=== PATIENT | female | born 1985 | race Caucasian/White ===

== ENCOUNTER 2016-08-02 10:55 | Emergency (ER) | payer OTHER ==
[2016-08-02 11:21] VITALS: BP 168/112
[2016-08-02] MEDS ORDERED: Sodium Chloride 0.9% 1,000 ML IV ONE (11:36)
[2016-08-02] MEDS ORDERED: Alum Hydrox/Mag Hydrox/Simeth 30 ML, Lidocaine 2% 15 ML PO ONE ×2 (11:36)
[2016-08-02] MEDS ORDERED: Ondansetron 4 MG/2 ML SDV IVPUSH ONE (11:36)
[2016-08-02] MEDS ORDERED: Sodium Chloride 0.9% 10 ML Syringe FLUSH PRN (11:36)
[2016-08-02] MEDS ORDERED: Pantoprazole 40 MG Vial IVPUSH ONE (11:36)
--- NOTE | 2016-08-02 11:41 | EDM.PDOC ---
ED HPI GENERAL MEDICAL PROBLEM - General Chief Complaint: Gastrointestinal Problem Stated Complaint: VOMITING Time Seen by Provider: 08/02/16 11:26 Source of Information: Reports: Patient History Limitations: Reports: No Limitations - History of Present Illness INITIAL COMMENTS - FREE TEXT/NARRATIVE: the patient is a 31-year-old female presents to ED complaining of epigastric pain is set at approximately 4:00 this morning. Patient states she awoke felt a burning sensation and bloated to the epigastric region became nauseated and vomited. Since then she's been vomiting every hour and has had multiple episodes of diarrhea. There is no blood within her emesis or diarrhea. Pain to the epigastric region is rated 8/10. There is no radiation. There is no improvement with rest. Has been no increase with eating or drinking. She does have a poor appetite. Remains to be bloated. In addition she developed a migraine with onset of abdominal pain and vomiting and took Imitrex and 9:00 with resolution. Denies any fever, shortness breath, chest pain, dysuria, dizziness, or recent sick exposure. She normally takes Nexium and tonics. She has not been taking proton for quite some time. In addition she takes Paxil for anxiety. Gallbladder and tonsils have been removed. She does have a history of IBS as well. Onset: Today, Sudden Onset Date: 08/02/16 Onset Time: 04:00 Duration: Constant, Waxing/Waning Location: Reports: Abdomen Quality: Reports: Ache, Sharp, Throbbing Severity: Severe Improves with: Reports: None Worsens with: Reports: Other (palpation and vomiting) Context: Denies: Sick Contact Associated Symptoms: Reports: Loss of Appetite, Nausea/Vomiting. Denies: Fever/ Chills Treatments [employer]: Reports: Other (see below) (see hpi) Abdomen Pain Score (Numeric/FACES): 8 - Related Data Allergies Allergy/AdvReac Type Severity Reaction Status Date / Time ibuprofen [From Motrin] Allergy Severe Anaphylactic Verified 10/29/15 22:34 Shock codeine Allergy Mild Itching Verified 10/30/15 09:15 morphine Allergy Mild Itching Verified 10/30/15 09:15 Sulfa (Sulfonamide Allergy Mild Hives Verified 10/30/15 09:15 Antibiotics) Fish Containing Products Allergy Swelling Verified 10/29/15 18:21 hydrocodone Allergy Itching Verified 10/29/15 18:21 tramadol Allergy itching/swe Verified 10/29/15 18:21 lling molds Allergy Hives Uncoded 05/31/14 15:37 Home Meds: Home Meds SUMAtriptan Succinate [Sumatriptan Succinate] 1 tab PO ASDIRECTED PRN 05/29/14 [ History] Esomeprazole [NexIUM] 40 mg PO DAILY 10/29/15 [History] PARoxetine HCl [Paxil] 30 mg PO DAILY 10/29/15 [History] Ondansetron [Zofran ODT] 4 mg PO Q6H PRN #15 tab.dis 08/02/16 [Rx] Pantoprazole Sodium [Protonix] 20 mg PO DAILY #30 tablet. 08/02/16 [Rx] Past Medical History Other Cardiovascular History: Currently elevated BP with extrem edema, 1+ urine protien Respiratory History: Reports: Asthma Other Respiratory History: exercise induced asthma. uses once every few months and inhaler Gastrointestinal History: Reports: GERD, Irritable Bowel Syndrome Other Gastrointestinal History: worse with anxiety. gets constipation with the IBS [employer] History: Reports: Neurological History: Reports: Vertigo Other Neuro History: gets migraines every few weeks. usually takes imitrex Psychiatric History: Reports: Anxiety, Depression, Panic Attack Other Psychiatric History: usually on paxil and protonix Endocrine/Metabolic History: Reports: Obesity/BMI 30+ - Infectious Disease History Infectious Disease History: Reports: Chicken Pox - Past Surgical History HEENT Surgical History: Reports: Tonsillectomy Other HEENT Surgeries/Procedures: cyst removed from esophagus Endocrine Surgical History: Reports: None Neurological Surgical History: Reports: None Social & Family History - Family History Family Medical History: Noncontributory Cardiac: Reports: Heart Failure Oncologic: Reports: Breast (grandmother), Thyroid (grandmother) - Tobacco Use Smoking Status *Q: Current Every Day Smoker Years of Tobacco use: 6 Packs/Tins Daily: 0.5 Second Hand Smoke Exposure: No - Caffeine Use Caffeine Use: Reports: Coffee, Tea - Alcohol Use Days Per Week of Alcohol Use: 0 - Recreational Drug Use Recreational Drug Use: No ED ROS GENERAL - Review of Systems Review Of Systems: See Below Constitutional: Reports: Decreased Appetite. Denies: Fever, Chills Respiratory: Reports: No Symptoms Cardiovascular: Reports: No Symptoms GI/Abdominal: Reports: Abdominal Pain, Diarrhea, Nausea, Vomiting. Denies: Black Stool, Bloody Stool, Constipation, Difficulty Swallowing, Hematemesis, Melena : Reports: No Symptoms Musculoskeletal: Reports: No Symptoms Neurological: Reports: No Symptoms ED EXAM, GI/ABD - Physical Exam Exam: See Below Exam Limited By: No Limitations General Appearance: Alert, WD/WN, No Apparent Distress, Mild Distress Ears: Hearing Grossly Normal Nose: Normal Inspection Throat/Mouth: Normal Inspection, Normal Oropharynx, Normal Voice, No Airway Compromise Neck: Normal Inspection, Supple Respiratory/Chest: No Respiratory Distress, Lungs Clear, Normal Breath Sounds, No Accessory Muscle Use, Chest Non-Tender Cardiovascular: Normal Peripheral Pulses, Regular Rate, Rhythm GI/Abdominal: Normal Bowel Sounds, Soft, No Organomegaly, No Distention, No Abnormal Bruit, No Mass, Tenderness (mild tenderness noted to the epigastric region with palpation) Back Exam: Normal Inspection. No: CVA Tenderness (L), CVA Tenderness (R) Neurological: Alert, Oriented, CN II-XII Intact, Normal Cognition, No Motor/ Sensory Deficits Psychiatric: Normal Affect, Normal Mood Skin Exam: Warm, Dry, Intact, Normal Color Course - Vital Signs Last Recorded V/S: Last Vital Signs Temp 96.7 F 08/02/16 11:19 Pulse 80 08/02/16 11:19 Resp 20 08/02/16 11:19 BP 168/112 H 08/02/16 11:19 Pulse Ox 97 08/02/16 11:19 - Orders/Labs/Meds Orders: Active Orders 24 hr Category Date Time Status Peripheral IV Care [RC] . DIRECTED Care 08/02/16 11:36 Active Abdomen 2V AP Flat Upright [CR] Stat Exams 08/02/16 11:35 Taken Sodium Chloride 0.9% [Saline Flush] Med 08/02/16 11:36 Active 10 ml FLUSH ASDIRECTED PRN Peripheral IV Insertion Adult [OM.PC] Stat Oth 08/02/16 11:35 Ordered Medication Orders Sodium Chloride (Saline Flush) 10 ml FLUSH ASDIRECTED PRN PRN Reason: Keep Vein Open Last Admin: 08/02/16 12:04 Dose: 10 ml Labs: Laboratory Tests 08/02/16 08/02/16 08/02/16 Range/Units 11:45 11:45 11:45 WBC 9.56 (3.98-10.04) K/mm3 RBC 5.26 H (3.98-5.22) M/mm3 Hgb 13.8 (11.2-15.7) gm/L Hct 41.5 (34.1-44.9) % MCV 78.9 L (79.4-94.8) fl MCH 26.2 (25.6-32.2) pg MCHC 33.3 (32.2-35.5) g/dl RDW Std Deviation 40.9 (36.4-46.3) fL Plt Count 386 H (182-369) K/mm3 MPV 8.5 L (9.4-12.3) fl Neut % (Auto) 79.1 H (34.0-71.1) % Lymph % (Auto) 15.7 L (19.3-51.7) % [place] % (Auto) 4.4 L (4.7-12.5) % Eos % (Auto) 0.3 L (0.7-5.8) Baso % (Auto) 0.2 (0.1-1.2) % Neut # (Auto) 7.56 H (1.56-6.13) K/mm3 Lymph # (Auto) 1.50 (1.18-3.74) K/mm3 [place] # (Auto) 0.42 H (0.24-0.36) K/mm3 Eos # (Auto) 0.03 L (0.04-0.36) K/mm3 Baso # (Auto) 0.02 (0.01-0.08) K/mm3 Sodium 139 (136-145) mEq/L Potassium 4.0 (3.5-5.1) mEq/L Chloride 107 (98-107) mEq/L Carbon Dioxide 24 (21-32) mEq/L Anion Gap 12.0 (5-15) BUN 8 (7-18) mg/dL Creatinine 0.7 (0.55-1.02) mg/dL Est Cr Clr Drug Dosing 108.01 mL/min Estimated GFR (MDRD) > 60 (>60) mL/min BUN/Creatinine Ratio 11.4 L (14-18) Glucose 119 H (74-106) mg/dL Calcium 8.7 (8.5-10.1) mg/dL Total Bilirubin 0.4 (0.2-1.0) mg/dL AST 15 (15-37) U/L ALT 29 (14-59) U/L Alkaline Phosphatase 96 (46-116) U/L Total Protein 7.6 (6.4-8.2) g/dl Albumin 3.6 (3.4-5.0) g/dl Globulin 4.0 gm/dL Albumin/Globulin Ratio 0.9 L (1-2) Lipase 82 (73-393) U/L HCG, Qual Negative (NEGATIVE) Meds: Medications Generic Name Dose Route Start Last Admin Trade Name Freq PRN Reason Stop Dose Admin Sodium Chloride 10 ml 08/02/16 11:36 08/02/16 12:04 Saline Flush FLUSH 10 ml ASDIRECTED PRN Administration Keep Vein Open Discontinued Medications Generic Name Dose Route Start Last Admin Trade Name Freq PRN Reason Stop Dose Admin Al Hydroxide/Mg Hydroxide 30 0 ml 08/02/16 11:36 08/02/16 12:02 ml/ Lidocaine HCl 15 ml PO 08/02/16 11:37 45 ml ONETIME ONE Administration Sodium Chloride 1,000 mls @ 999 mls/hr 08/02/16 11:36 08/02/16 11:55 Normal Saline IV 08/02/16 12:36 999 mls/hr ONETIME ONE Administration Ondansetron HCl 4 mg 08/02/16 11:36 08/02/16 12:00 Zofran IVPUSH 08/02/16 11:37 4 mg ONETIME ONE Administration Pantoprazole Sodium 40 mg 08/02/16 11:36 08/02/16 12:01 Protonix Iv IVPUSH 08/02/16 11:37 40 mg ONETIME ONE Administration - Re-Assessments/Exams Free Text/Narrative Re-Assessment/Exam: ordered a peripheral IV with normal saline 999 mL per hour, Zofran 4 mg IVP, Protonix 40 mg IVP, and GI cocktail. Initial labs and studies include CBC, chem 14, hCG, and lipase. labs reviewed: White blood cell count 9.56, hemoglobin is 13.8, platelets 386, neutrophil percentage is 79.1, neutrophil number is 7.56, chem 14 essentially normal, creatinine 0.7, lipase 82, hCG was negative. 1235: Reassessment, patient's nausea and pain have decreased drastically with the above therapies. We'll discharge patient home with instructions as documented. Departure - Departure Time of Disposition: 12:52 Disposition: Home, Self-Care 01 Condition: good Clinical Impression: Gastroenteritis - Discharge Information Prescriptions: Ondansetron [Zofran ODT] 4 mg PO Q6H PRN #15 tab.dis PRN Reason: Nausea/Vomiting Pantoprazole Sodium [Protonix] 20 mg PO DAILY #30 tablet.dr Forms: ED Department Discharge Additional Instructions: As discussed etiology of current symptoms may be viral (gastroenteritis) or related to gastritis (GERD).Treatment is symptomatic care only including: Zofran 4 mg every 6 hours as needed for nausea/vomiting, Maalox 1-2 tabs p.o. p.r.n. do not exceed 12 tabs in a 24., Push the fluids, refrain from raw fruits/ vegetables, fruit juices, milk, or any spicy foods for the next 48 hrs, advance to bland diet for the next 2 days, and back to normal diet thereafter. continue taking all home medications as prescribed. Followup with her primary care provider next week if symptoms have not improved. Return to the ED for any new or worsening symptoms. - My Orders Last 24 Hours: My Active Orders 08/02/16 11:35 Abdomen 2V AP Flat Upright [CR] Stat Peripheral IV Insertion Adult [OM.PC] Stat 08/02/16 11:36 Peripheral IV Care [RC] . DIRECTED Sodium Chloride 0.9% [Saline Flush] 10 ml FLUSH ASDIRECTED PRN - Assessment/Plan Last 24 Hours: My Active Orders 08/02/16 11:35 Abdomen 2V AP Flat Upright [CR] Stat Peripheral IV Insertion Adult [OM.PC] Stat 08/02/16 11:36 Peripheral IV Care [RC] . DIRECTED Sodium Chloride 0.9% [Saline Flush] 10 ml FLUSH ASDIRECTED PRN
--- NOTE | 2016-08-04 12:04 | CR ---
Abdomen: Supine views of the abdomen were obtained as well as upright study. Surgical clips are seen from prior cholecystectomy. Bowel gas pattern appears normal. Multiple calcifications are seen within the right pelvis most likely representing phleboliths. Bony structures show minimal scoliosis. No free air is seen. Slight rib anomaly is seen within the left lower chest with partial fusion between 2 ribs. Impression: 1. Incidental findings. Diagnostic code #2
== END 2016-08-02 13:11 | disposition home or self-care (01) ==
LOC: JD.ED 10:55
DX: K52.9 Noninfective gastroenteritis and colitis, unspecified (principal); F17.210 Nicotine dependence, cigarettes, uncomplicated; J45.909 Unspecified asthma, uncomplicated; K21.9 Gastro-esophageal reflux disease without esophagitis; F41.0 Panic disorder [episodic paroxysmal anxiety]; F32.9 Major depressive disorder, single episode, unspecified; E66.9 Obesity, unspecified; Z98.890 Other specified postprocedural states; Z79.899 Other long term (current) drug therapy; Z88.5 Allergy status to narcotic agent; Z88.6 Allergy status to analgesic agent; Z88.2 Allergy status to sulfonamides; Z91.013 Allergy to seafood
CPT/HCPCS: 36415; 74020; 80053; 83690; 84703; 85025; 96361; 96374; 96375; 99284; A9270; C9113; J2405; J7040; J7050

== ENCOUNTER 2017-01-23 21:04 | Emergency (ER) | payer OTHER ==
[2017-01-23 21:18] VITALS: BP 136/95
[2017-01-23] MEDS ORDERED: Albuterol/Ipratropium 3.0-0.5 MG/3 ML Neb Soln NEB ONE (21:26)
--- NOTE | 2017-01-23 21:34 | EDM.PDOC ---
ED HPI GENERAL MEDICAL PROBLEM - General Chief Complaint: Respiratory Problem Stated Complaint: TIGHTNESS IN CHEST Time Seen by Provider: 01/23/17 21:07 Source of Information: Reports: Patient History Limitations: Reports: No Limitations - History of Present Illness INITIAL COMMENTS - FREE TEXT/NARRATIVE: This is a 32-year-old female. Onset several days ago with increasing cough and lung congestion. She does apparently have a history of asthma but does not use an inhaler. She denies any fever or chills she's had no upper respiratory symptoms or sinus drainage and no sore throat. 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 She does smoke. She comes in the ER because she feels like she is tight when she breathes and she is coughing a lot. She denies any production with the cough. She denies any nausea or vomiting. Coughing does bother her back and her abdomen muscles. Chest Pain Score (Numeric/FACES): 8 - Related Data Allergies Allergy/AdvReac Type Severity Reaction Status Date / Time ibuprofen [From Motrin] Allergy Severe Anaphylactic Verified 10/29/15 22:34 Shock codeine Allergy Mild Itching Verified 10/30/15 09:15 morphine Allergy Mild Itching Verified 10/30/15 09:15 Sulfa (Sulfonamide Allergy Mild Hives Verified 10/30/15 09:15 Antibiotics) Fish Containing Products Allergy Swelling Verified 10/29/15 18:21 hydrocodone Allergy Itching Verified 10/29/15 18:21 tramadol Allergy itching/swe Verified 10/29/15 18:21 lling molds Allergy Hives Uncoded 05/31/14 15:37 Home Meds: Home Meds SUMAtriptan Succinate [Sumatriptan Succinate] 1 tab PO ASDIRECTED PRN 05/29/14 [ History] Esomeprazole [NexIUM] 40 mg PO DAILY 10/29/15 [History] PARoxetine HCl [Paxil] 30 mg PO DAILY 10/29/15 [History] Albuterol Sulfate [Ventolin Hfa] 18 gm IH Q6H PRN #1 hfa.aer.ad 01/23/17 [Rx] Amoxicillin/Potassium Clav [Augmentin 875-125 Tablet] 1 each PO BID #14 tablet 01/23/17 [Rx] Metoprolol Succinate 25 mg PO DAILY 01/23/17 [History] Past Medical History Other Cardiovascular History: Currently elevated BP with extrem edema, 1+ urine protien Respiratory History: Reports: Asthma Other Respiratory History: exercise induced asthma. uses once every few months and inhaler Gastrointestinal History: Reports: GERD, Irritable Bowel Syndrome Other Gastrointestinal History: worse with anxiety. gets constipation with the IBS [employer] History: Reports: Neurological History: Reports: Vertigo Other Neuro History: gets migraines every few weeks. usually takes imitrex Psychiatric History: Reports: Anxiety, Depression, Panic Attack Other Psychiatric History: usually on paxil and protonix Endocrine/Metabolic History: Reports: Obesity/BMI 30+ - Infectious Disease History Infectious Disease History: Reports: Chicken Pox - Past Surgical History HEENT Surgical History: Reports: Tonsillectomy Other HEENT Surgeries/Procedures: cyst removed from esophagus Endocrine Surgical History: Reports: None Neurological Surgical History: Reports: None Social & Family History - Family History Family Medical History: Noncontributory Cardiac: Reports: Heart Failure Oncologic: Reports: Breast, Thyroid - Tobacco Use Smoking Status *Q: Current Every Day Smoker Years of Tobacco use: 1 Packs/Tins Daily: 0.5 Second Hand Smoke Exposure: No - Caffeine Use Caffeine Use: Reports: Coffee - Alcohol Use Days Per Week of Alcohol Use: 0 - Recreational Drug Use Recreational Drug Use: No ED ROS GENERAL - Review of Systems Review Of Systems: See Below Constitutional: Denies: Fever, Chills HEENT: Denies: Rhinitis, Sinus Problem, Throat Pain, Throat Swelling Respiratory: Reports: Shortness of Breath, Wheezing, Cough Cardiovascular: Denies: Chest Pain Endocrine: Reports: No Symptoms GI/Abdominal: Denies: Abdominal Pain, Diarrhea, Nausea, Vomiting : Reports: No Symptoms Musculoskeletal: Reports: Other (Back soreness and abdominal soreness from coughing) Skin: Reports: No Symptoms Neurological: Reports: No Symptoms Psychiatric: Reports: No Symptoms Hematologic/Lymphatic: Reports: No Symptoms ED EXAM, GENERAL - Physical Exam Exam: See Below Exam Limited By: No Limitations General Appearance: Alert, WD/WN, No Apparent Distress Eye Exam: Bilateral Eye: Normal Inspection Ears: Normal External Exam, Normal Canal, Normal TMs Nose: Normal Inspection. No: Nasal Drainage, Clear Rhinorrhea Throat/Mouth: Normal Inspection, Normal Lips, Normal Oropharynx, Normal Voice, No Airway Compromise Head: Normocephalic Neck: Supple Respiratory/Chest: No Respiratory Distress, Other (She is noted to have scattered expiratory wheeze but no prolonged expiratory phase, the wheezes heard mostly in the bases but also in the right upper lobe) Cardiovascular: Regular Rate, Rhythm, No Murmur GI/Abdominal: Soft, Non-Tender Back Exam: Full Range of Motion Extremities: Normal Inspection, Normal Range of Motion Neurological: Alert, Oriented Psychiatric: Normal Affect, Normal Mood Skin Exam: Warm, Dry Course - Vital Signs Last Recorded V/S: Last Vital Signs Temp 98.0 F 01/23/17 21:16 Pulse 82 01/23/17 21:16 Resp 20 01/23/17 21:16 BP 136/95 H 01/23/17 21:16 Pulse Ox 98 01/23/17 21:16 - Orders/Labs/Meds Orders: Active Orders 24 hr Category Date Time Status RT Aerosol Therapy [RC] ASDIRECTED Care 01/23/17 21:26 Active Meds: Medications Discontinued Medications Generic Name Dose Route Start Last Admin Trade Name Freq PRN Reason Stop Dose Admin Albuterol/Ipratropium 3 ml 01/23/17 21:26 01/23/17 21:32 Duoneb 3.0-0.5 Mg/3 Ml NEB 01/23/17 21:27 3 ml ONETIME ONE Administration - Re-Assessments/Exams Free Text/Narrative Re-Assessment/Exam: 01/23/17 22:10 After the breathing treatment the patient states she is breathing much better not quite so tight and feeling better. I'll place her on an albuterol inhaler. She does indicate she has exercise-induced asthma even though it doesn't bother her much now and she is not on an inhaler usually. He has been on Zithromax her Z-Christian in the past that works well for her. Departure - Departure Time of Disposition: 22:11 Disposition: Home, Self-Care 01 Condition: Good Clinical Impression: Acute bronchitis Qualifiers: Bronchitis organism: unspecified organism Qualified Code(s): J20.9 - Acute bronchitis, unspecified Reactive airway disease Qualifiers: Asthma severity: mild Asthma persistence: intermittent Asthma complication type : uncomplicated Qualified Code(s): J45.20 - Mild intermittent asthma, uncomplicated - Discharge Information Prescriptions: Albuterol Sulfate [Ventolin Hfa] 18 gm IH Q6H PRN #1 hfa.aer.ad PRN Reason: Wheezing Amoxicillin/Potassium Clav [Augmentin 875-125 Tablet] 1 each PO BID #14 tablet Referrals: Kareem Correia MD [Primary Care Provider] - Forms: ED Department Discharge Additional Instructions: Take [id number] Mucinex as desired for the mucous, you may take over-the- counter cough syrup such as Robitussin or Delsym to help your cough, stay well hydrated with lots of fluids so you can cough the mucus up, take the antibiotics twice a day for the full 7 days, use the albuterol inhaler as needed for the wheezing and tightness, follow-up with your family doctor later this week for recheck or return to the ER if needed - My Orders Last 24 Hours: My Active Orders 01/23/17 21:26 RT Aerosol Therapy [RC] ASDIRECTED - Assessment/Plan Last 24 Hours: My Active Orders 01/23/17 21:26 RT Aerosol Therapy [RC] ASDIRECTED
== END 2017-01-23 22:24 | disposition home or self-care (01) ==
LOC: JD.ED 21:04
DX: J45.20 Mild intermittent asthma, uncomplicated (principal); J20.9 Acute bronchitis, unspecified; K21.9 Gastro-esophageal reflux disease without esophagitis; F41.0 Panic disorder [episodic paroxysmal anxiety]; F17.210 Nicotine dependence, cigarettes, uncomplicated; Z79.899 Other long term (current) drug therapy; Z88.5 Allergy status to narcotic agent; Z88.6 Allergy status to analgesic agent; Z88.2 Allergy status to sulfonamides; Z91.013 Allergy to seafood; Z91.048 Other nonmedicinal substance allergy status
CPT/HCPCS: 94640; 99283; 99283-25

== ENCOUNTER 2018-05-19 18:29 | Emergency (ER) | payer OTHER ==
[2018-05-19 18:45] VITALS: BP 156/113
[2018-05-19] MEDS ORDERED: Sodium Chloride 0.9% 10 ML Syringe FLUSH PRN (19:01)
[2018-05-19] MEDS ORDERED: diphenhydrAMINE 50 MG/ML SDV IVPUSH ONE (19:01)
[2018-05-19] MEDS ORDERED: HYDROmorphone 1 MG/ML Syringe IVPUSH ONE ×2 (19:01→20:09)
[2018-05-19] MEDS ORDERED: Ondansetron 4 MG/2 ML SDV IVPUSH ONE (19:02)
--- NOTE | 2018-05-19 19:06 | EDM.PDOC ---
ED HPI GENERAL MEDICAL PROBLEM - General Chief Complaint: Headache Stated Complaint: MIGRAIN Time Seen by Provider: 05/19/18 18:56 Source of Information: Reports: Patient History Limitations: Reports: No Limitations - History of Present Illness INITIAL COMMENTS - FREE TEXT/NARRATIVE: The patient presents with a migraine. She says this started early this morning and work her up. She took an imitrex at 4 am and later in the day and it did not help. She has photophobia and nausea. She has no numbness or weakness. This is like her normal migraine but she says it has been years since she has had to come in to get some help with them. She has no fever, chills, cough, congestion, runny nose, chest pain or shortness of breath. She has no abdominal pain. Onset: Gradual Duration: Hour(s): Location: Reports: Head Quality: Reports: Ache Severity: Severe Improves with: Reports: None Worsens with: Reports: None Associated Symptoms: Reports: Headaches, Nausea/Vomiting. Denies: Chest Pain, Cough, Fever/Chills, Shortness of Breath Headache Pain Score (Numeric/FACES): 7 - Related Data Allergies Allergy/AdvReac Type Severity Reaction Status Date / Time ibuprofen [From Motrin] Allergy Severe Anaphylactic Verified 09/17/17 20:21 Shock codeine Allergy Mild Itching Verified 09/17/17 20:21 morphine Allergy Mild Itching Verified 09/17/17 20:21 Sulfa (Sulfonamide Allergy Mild Hives Verified 09/17/17 20:21 Antibiotics) Fish Containing Products Allergy Swelling Verified 09/17/17 20:21 hydrocodone Allergy Itching Verified 09/17/17 20:21 tramadol Allergy itching/swe Verified 09/17/17 20:21 lling molds Allergy Hives Uncoded 05/31/14 15:37 Home Meds: Home Meds SUMAtriptan succinate [Sumatriptan Succinate] 1 tab PO ASDIRECTED PRN 05/29/14 [ History] Esomeprazole [NexIUM] 40 mg PO DAILY 10/29/15 [History] PARoxetine HCl [Paxil] 30 mg PO DAILY 10/29/15 [History] Albuterol Sulfate [Ventolin Hfa] 18 gm IH Q6H PRN #1 hfa.aer.ad 01/23/17 [Rx] Phentermine HCl 37.5 mg PO DAILY 05/19/18 [History] Past Medical History Other Cardiovascular History: Currently elevated BP with extrem edema, 1+ urine protien Respiratory History: Reports: Asthma Other Respiratory History: exercise induced asthma. uses once every few months and inhaler Gastrointestinal History: Reports: GERD, Irritable Bowel Syndrome Other Gastrointestinal History: worse with anxiety. gets constipation with the IBS [employer] History: Reports: Neurological History: Reports: Vertigo Other Neuro History: gets migraines every few weeks. usually takes imitrex Psychiatric History: Reports: Anxiety, Depression, Panic Attack Other Psychiatric History: usually on paxil and protonix Endocrine/Metabolic History: Reports: Obesity/BMI 30+ - Infectious Disease History Infectious Disease History: Reports: Chicken Pox - Past Surgical History HEENT Surgical History: Reports: Tonsillectomy Other HEENT Surgeries/Procedures: cyst removed from esophagus Endocrine Surgical History: Reports: None Neurological Surgical History: Reports: None Social & Family History - Family History Family Medical History: Noncontributory Cardiac: Reports: Heart Failure Oncologic: Reports: Breast, Thyroid - Tobacco Use Smoking Status *Q: Current Every Day Smoker Years of Tobacco use: 2 Packs/Tins Daily: 0.5 - Caffeine Use Caffeine Use: Reports: Coffee - Recreational Drug Use Recreational Drug Use: No ED ROS GENERAL - Review of Systems Review Of Systems: See Below Constitutional: Reports: No Symptoms HEENT: Reports: No Symptoms Respiratory: Reports: No Symptoms Cardiovascular: Reports: No Symptoms Endocrine: Reports: No Symptoms GI/Abdominal: Reports: No Symptoms : Reports: No Symptoms Musculoskeletal: Reports: No Symptoms Skin: Reports: No Symptoms Neurological: Reports: Headache - Physical Exam Exam: See Below Exam Limited By: No Limitations General Appearance: Alert, No Apparent Distress Ears: Normal External Exam Nose: Normal Inspection Head Exam: Atraumatic, Normocephalic Neck: Normal Inspection Respiratory/Chest: No Respiratory Distress, Lungs Clear, Normal Breath Sounds Cardiovascular: Regular Rate, Rhythm, No Edema, No Murmur GI/Abdominal: Soft, Non-Tender, No Organomegaly, No Mass Neuro Exam (Abbreviated): Alert, Oriented, No Motor/Sensory Deficits Course - Vital Signs Last Recorded V/S: Last Vital Signs Temp 98.7 F 05/19/18 18:41 Pulse 84 05/19/18 18:41 Resp 20 05/19/18 18:41 BP 156/113 H 03/27/19 18:41 Pulse Ox 98 05/19/18 18:41 - Orders/Labs/Meds Orders: Active Orders 24 hr Category Date Time Status Peripheral IV Care [RC] . DIRECTED Care 05/19/18 19:01 Active HYDROmorphone [Dilaudid] Med 05/19/18 20:09 Once 0.5 mg IVPUSH ONETIME ONE Sodium Chloride 0.9% [Saline Flush] Med 05/19/18 19:01 Active 10 ml FLUSH ASDIRECTED PRN Peripheral IV Insertion Adult [OM.PC] Routine Oth 05/19/18 19:01 Ordered Medication Orders Sodium Chloride (Saline Flush) 10 ml FLUSH ASDIRECTED PRN PRN Reason: Keep Vein Open Last Admin: 05/19/18 19:21 Dose: 10 ml Meds: Medications Generic Name Dose Route Start Last Admin Trade Name Freq PRN Reason Stop Dose Admin Sodium Chloride 10 ml 05/19/18 19:01 05/19/18 19:21 Saline Flush FLUSH 10 ml ASDIRECTED PRN Administration Keep Vein Open Discontinued Medications Generic Name Dose Route Start Last Admin Trade Name Freq PRN Reason Stop Dose Admin Diphenhydramine HCl 50 mg 05/19/18 19:01 05/19/18 19:25 Benadryl IVPUSH 05/19/18 19:02 50 mg ONETIME ONE Administration Hydromorphone HCl 0.5 mg 05/19/18 19:01 05/19/18 19:28 Dilaudid IVPUSH 05/19/18 19:02 0.5 mg ONETIME ONE Administration Ondansetron HCl 4 mg 05/19/18 19:02 05/19/18 19:22 Zofran IVPUSH 05/19/18 19:03 4 mg ONETIME ONE Administration - Re-Assessments/Exams Free Text/Narrative Re-Assessment/Exam: 05/19/18 19:05 I ordered an IV saline lock, dilaudid 0.5mg IV, zofran 4mg IV and benadryl 50mg IV. She says this combination helps the most. 05/19/18 20:09 She feels much better. I will give her another dose of dilaudid 0.5mg IV and discharge her. Departure - Departure Time of Disposition: 20:10 Disposition: Home, Self-Care 01 Condition: Good Clinical Impression: Migraine - Discharge Information *PRESCRIPTION DRUG MONITORING PROGRAM REVIEWED*: Not Applicable *COPY OF PRESCRIPTION DRUG MONITORING REPORT IN PATIENT MAL: Not Applicable Referrals: Kareem Correia MD [Primary Care Provider] - Forms: ED Department Discharge Additional Instructions: Go home and rest in a dark quiet room. Please return if you are worse. - My Orders Last 24 Hours: My Active Orders 05/19/18 19:01 Peripheral IV Care [RC] . DIRECTED Sodium Chloride 0.9% [Saline Flush] 10 ml FLUSH ASDIRECTED PRN Peripheral IV Insertion Adult [OM.PC] Routine 05/19/18 20:09 HYDROmorphone [Dilaudid] 0.5 mg IVPUSH ONETIME ONE - Assessment/Plan Last 24 Hours: My Active Orders 05/19/18 19:01 Peripheral IV Care [RC] . DIRECTED Sodium Chloride 0.9% [Saline Flush] 10 ml FLUSH ASDIRECTED PRN Peripheral IV Insertion Adult [OM.PC] Routine 05/19/18 20:09 HYDROmorphone [Dilaudid] 0.5 mg IVPUSH ONETIME ONE
== END 2018-05-19 20:21 | disposition home or self-care (01) ==
LOC: JD.ED 18:29
DX: G43.909 Migraine, unspecified, not intractable, without status migrainosus (principal); J45.909 Unspecified asthma, uncomplicated; F17.210 Nicotine dependence, cigarettes, uncomplicated; Z88.6 Allergy status to analgesic agent; Z88.5 Allergy status to narcotic agent; Z88.2 Allergy status to sulfonamides; Z79.899 Other long term (current) drug therapy
CPT/HCPCS: 96374; 96375; 96376; 99283; J1170; J1200; J2405; 99284

== ENCOUNTER 2018-06-01 15:58 | Emergency (ER) | payer SELFPAY ==
[2018-06-01 16:19] VITALS: BP 155/104
[2018-06-01] MEDS ORDERED: diphenhydrAMINE 50 MG/ML SDV IVPUSH ONE (16:39)
[2018-06-01] MEDS ORDERED: Sodium Chloride 0.9% 10 ML Syringe FLUSH PRN (16:39)
[2018-06-01] MEDS ORDERED: HYDROmorphone 1 MG/ML Syringe IM ONE (16:39)
[2018-06-01] MEDS ORDERED: Ondansetron 4 MG/2 ML SDV IVPUSH ONE (16:39)
[2018-06-01] MEDS ORDERED: Sodium Chloride 0.9% 1,000 ML IV SCH (16:45)
--- NOTE | 2018-06-01 16:46 | EDM.PDOC ---
ED HPI GENERAL MEDICAL PROBLEM - General Chief Complaint: Headache Stated Complaint: MIGRAINE Time Seen by Provider: 06/01/18 16:20 Source of Information: Reports: Patient, RN Notes Reviewed History Limitations: Reports: No Limitations - History of Present Illness INITIAL COMMENTS - FREE TEXT/NARRATIVE: Patient is a 33 year old female who presents to the ED for the evaluation of a migraine. She notes that she has a history of migraines, she states this one started around 10 AM, she did take 2 doses of her 100 mg Imitrex and this has not provided much relief. The patient is complaining of nausea and light sensitivity, watery eyes. She notes her primary care physician a be Dr. Correia. She states that she was recently seen here roughly 2-3 weeks ago for the same type of migraine headache. She states that she has had migraine headaches for forever. She states that she recently just started a new type of control in March,, and migraines have increased since then she is going to talk to her [employer] to see if he will not change the oral contraceptive for her. She states that she knows which foods to avoid, and she has not eaten any of these types of foods to exacerbate a migraine. She states that her pain is a 9 out of 10 today. She notes a previous allergy to ibuprofen , she states that when she took this her face got all swollen up. She states that she used to take ibuprofen all the time, but after this one instance she cannot take it any longer. Headache Pain Score (Numeric/FACES): 9 - Related Data Allergies Allergy/AdvReac Type Severity Reaction Status Date / Time ibuprofen [From Motrin] Allergy Severe Anaphylactic Verified 06/01/18 16:19 Shock codeine Allergy Mild Itching Verified 06/01/18 16:19 morphine Allergy Mild Itching Verified 06/01/18 16:19 Sulfa (Sulfonamide Allergy Mild Hives Verified 06/01/18 16:19 Antibiotics) Fish Containing Products Allergy Swelling Verified 06/01/18 16:19 hydrocodone Allergy Itching Verified 06/01/18 16:19 tramadol Allergy itching/swe Verified 06/01/18 16:19 lling molds Allergy Hives Uncoded 06/01/18 16:19 Home Meds: Home Meds SUMAtriptan succinate [Sumatriptan Succinate] 100 tab PO ASDIRECTED PRN [History] Esomeprazole [NexIUM] 40 mg PO DAILY 10/29/15 [History] PARoxetine HCl [Paxil] 30 mg PO DAILY 10/29/15 [History] Albuterol Sulfate [Ventolin Hfa] 18 gm IH Q6H PRN #1 hfa.aer.ad 01/23/17 [Rx] Phentermine HCl 37.5 mg PO DAILY 05/19/18 [History] Past Medical History - Past Health History Medical/Surgical History: Denies Medical/Surgical History Other Cardiovascular History: Currently elevated BP with extrem edema, 1+ urine protien Respiratory History: Reports: Asthma Other Respiratory History: exercise induced asthma. uses once every few months and inhaler Gastrointestinal History: Reports: GERD, Irritable Bowel Syndrome Other Gastrointestinal History: worse with anxiety. gets constipation with the IBS [employer] History: Reports: Neurological History: Reports: Vertigo Other Neuro History: gets migraines every few weeks. usually takes imitrex Psychiatric History: Reports: Anxiety, Depression, Panic Attack Other Psychiatric History: usually on paxil and protonix Endocrine/Metabolic History: Reports: Obesity/BMI 30+ - Infectious Disease History Infectious Disease History: Reports: Chicken Pox - Past Surgical History HEENT Surgical History: Reports: Tonsillectomy Other HEENT Surgeries/Procedures: cyst removed from esophagus Endocrine Surgical History: Reports: None Neurological Surgical History: Reports: None Social & Family History - Family History Family Medical History: Noncontributory Cardiac: Reports: Heart Failure Oncologic: Reports: Breast, Thyroid - Tobacco Use Smoking Status *Q: Current Every Day Smoker Years of Tobacco use: 3 Packs/Tins Daily: 0.5 - Caffeine Use Caffeine Use: Reports: Coffee - Recreational Drug Use Recreational Drug Use: No ED ROS GENERAL - Review of Systems Review Of Systems: See Below Constitutional: Denies: Fever, Chills, Malaise, Weakness HEENT: Reports: No Symptoms Respiratory: Reports: No Symptoms Cardiovascular: Reports: No Symptoms Endocrine: Reports: No Symptoms GI/Abdominal: Reports: No Symptoms : Reports: No Symptoms Musculoskeletal: Reports: No Symptoms Skin: Reports: No Symptoms Neurological: Reports: Headache Psychiatric: Reports: No Symptoms Hematologic/Lymphatic: Reports: No Symptoms Immunologic: Reports: No Symptoms - Physical Exam Exam: See Below Exam Limited By: No Limitations General Appearance: Alert, WD/WN, No Apparent Distress (Patient is laying on the ED cot in a darkened room, with a washcloth over her eyes) Eye Exam: Bilateral Eye: EOMI, Normal Inspection, PERRL Ears: Normal External Exam Nose: Normal Inspection Throat/Mouth: Normal Inspection Head Exam: Atraumatic, Normocephalic Neck: Normal Inspection Respiratory/Chest: No Respiratory Distress, Lungs Clear, Normal Breath Sounds, No Accessory Muscle Use, Chest Non-Tender Cardiovascular: Normal Peripheral Pulses Neuro Exam (Abbreviated): Alert, Oriented, Normal Cognition, Normal Gait, No Motor/Sensory Deficits Extremities: Normal Inspection, Normal Capillary Refill Psychiatric: Normal Affect, Normal Mood Skin Exam: Warm, Dry, Intact, Normal Color, No Rash Course - Vital Signs Last Recorded V/S: Last Vital Signs Temp 98.3 F 06/01/18 16:16 Pulse 83 06/01/18 16:16 Resp 16 06/01/18 16:16 BP 155/104 H 06/01/18 16:16 Pulse Ox 99 06/01/18 16:16 - Orders/Labs/Meds Orders: Active Orders 24 hr Category Date Time Status Peripheral IV Care [RC] . DIRECTED Care 06/01/18 16:39 Active Sodium Chloride 0.9% [Normal Saline] 1,000 ml Med 06/01/18 16:45 Active IV ASDIRECTED Sodium Chloride 0.9% [Saline Flush] Med 06/01/18 16:39 Active 10 ml FLUSH ASDIRECTED PRN Peripheral IV Insertion Adult [OM.PC] Routine Oth 06/01/18 16:39 Ordered Medication Orders Sodium Chloride (Normal Saline) 1,000 mls @ 125 mls/hr IV ASDIRECTED BIANCA Last Admin: 06/01/18 17:03 Dose: 125 mls/hr Sodium Chloride (Saline Flush) 10 ml FLUSH ASDIRECTED PRN PRN Reason: Keep Vein Open Last Admin: 06/01/18 17:04 Dose: 10 ml Meds: Medications Generic Name Dose Route Start Last Admin Trade Name Freq PRN Reason Stop Dose Admin Sodium Chloride 1,000 mls @ 125 mls/hr 06/01/18 16:45 06/01/18 17:03 Normal Saline IV 125 mls/hr ASDIRECTED BIANCA Administration Sodium Chloride 10 ml 06/01/18 16:39 06/01/18 17:04 Saline Flush FLUSH 10 ml ASDIRECTED PRN Administration Keep Vein Open Discontinued Medications Generic Name Dose Route Start Last Admin Trade Name Pallavi PRN Reason Stop Dose Admin Diphenhydramine HCl 25 mg 06/01/18 16:39 06/01/18 17:05 Benadryl IVPUSH 06/01/18 16:40 25 mg ONETIME ONE Administration Hydromorphone HCl 0.5 mg 06/01/18 16:39 06/01/18 17:09 Dilaudid IM 06/01/18 16:40 Not Given ONETIME ONE Hydromorphone HCl 0.5 mg 06/01/18 17:07 06/01/18 17:07 Dilaudid IVPUSH 06/01/18 17:08 0.5 mg ONETIME ONE Administration Ondansetron HCl 4 mg 06/01/18 16:39 06/01/18 17:03 Zofran IVPUSH 06/01/18 16:40 4 mg ONETIME ONE Administration - Re-Assessments/Exams Free Text/Narrative Re-Assessment/Exam: 06/01/18 16:47 Patient presents to the ED for the evaluation of a migraine headache, she states this is a typical headache for her. As she has a stated allergic reaction to ibuprofen, I have ordered 0.5 mg IV Dilaudid, 25 mg IV Benadryl, 4 mg IV Zofran and an IV bolus of normal saline at this time for further management. 06/01/18 18:13 Patient states she is feeling better, rates her headache at around a 5 out of 10 , I will discharge her home with general recommendations. Departure - Departure Time of Disposition: 18:13 Disposition: Home, Self-Care 01 Condition: Fair Clinical Impression: Migraine Qualifiers: Migraine type: without aura Status migrainosus presence: without status migrainosus Intractability: not intractable Qualified Code(s): G43.009 - Migraine without aura, not intractable, without status migrainosus - Discharge Information *PRESCRIPTION DRUG MONITORING PROGRAM REVIEWED*: No *COPY OF PRESCRIPTION DRUG MONITORING REPORT IN PATIENT MAL: No Instructions: Migraine Headache, [id number] Referrals: Kareem Correia MD [Primary Care Provider] - Forms: ED Department Discharge Additional Instructions: You have been evaluated in the ED tonight for your headache. You have been given a combination of medications that did provide relief at this time. Please follow up with your [employer] for the evaluation of the new control that they put youon, you may need a change as this might be likely why you're having increased headaches. Please continue to use her Imitrex as needed, as directed for further migraines. Please return to the ED if your symptoms change or worsen - My Orders Last 24 Hours: My Active Orders 06/01/18 16:39 Peripheral IV Care [RC] . DIRECTED Sodium Chloride 0.9% [Saline Flush] 10 ml FLUSH ASDIRECTED PRN Peripheral IV Insertion Adult [OM.PC] Routine 06/01/18 16:45 Sodium Chloride 0.9% [Normal Saline] 1,000 ml IV ASDIRECTED - Assessment/Plan Last 24 Hours: My Active Orders 06/01/18 16:39 Peripheral IV Care [RC] . DIRECTED Sodium Chloride 0.9% [Saline Flush] 10 ml FLUSH ASDIRECTED PRN Peripheral IV Insertion Adult [OM.PC] Routine 06/01/18 16:45 Sodium Chloride 0.9% [Normal Saline] 1,000 ml IV ASDIRECTED
[2018-06-01] MEDS ORDERED: HYDROmorphone 0.5 MG/0.5 ML Syringe IVPUSH ONE (17:07)
[2018-06-01] MEDS ORDERED: HYDROmorphone 1 MG/ML Syringe IVPUSH ONE (18:23)
== END 2018-06-01 18:35 | disposition home or self-care (01) ==
LOC: JD.ED 15:58
DX: G43.009 Migraine without aura, not intractable, without status migrainosus (principal); J45.909 Unspecified asthma, uncomplicated; K21.9 Gastro-esophageal reflux disease without esophagitis; F41.9 Anxiety disorder, unspecified; F32.9 Major depressive disorder, single episode, unspecified; F17.210 Nicotine dependence, cigarettes, uncomplicated; Z88.8 Allergy status to other drugs, medicaments and biological substances; Z88.5 Allergy status to narcotic agent; Z79.899 Other long term (current) drug therapy
CPT/HCPCS: 96361; 96374; 96375; 96376; 99283; J1170; J1200; J2405; J7040; 99284

== ENCOUNTER 2019-01-17 12:33 | Emergency (ER) | payer OTHER ==
[2019-01-17 12:40] VITALS: BP 160/114; PULSE 66
[2019-01-17] MEDS ORDERED: diphenhydrAMINE 50 MG/ML SDV IVPUSH ONE (12:46)
[2019-01-17] MEDS ORDERED: Ondansetron 4 MG/2 ML SDV IVPUSH ONE (12:46)
[2019-01-17] MEDS ORDERED: HYDROmorphone 0.5 MG/0.5 ML Syringe IVPUSH ONE ×2 (12:46→13:50)
--- NOTE | 2019-01-17 12:51 | EDM.PDOC ---
ED HPI GENERAL MEDICAL PROBLEM - General Chief Complaint: Headache Stated Complaint: HEADACHE Time Seen by Provider: 01/17/19 12:45 Source of Information: Reports: Patient History Limitations: Reports: No Limitations - History of Present Illness INITIAL COMMENTS - FREE TEXT/NARRATIVE: Patient is a 34-year-old female who presents with complaints of a migraine that started last night. She is nauseous with this headache however she has not had any vomiting. She denies any vision changes numbness or tingling associated with this headache. She indicates that the pain is on the top of her head. She has a long history of migraines and states that this is her typical migraine. She did take her Imitrex last night and states this did improve her symptoms and afterwards she was able to sleep. However when she woke this morning the symptoms had returned. She has tried numerous combinations of medications in the past, and states that Dilaudid, Zofran, and Benadryl work well for her. She does have an anaphylactic allergy to ibuprofen so she is unable to take Toradol. Headache Pain Score (Numeric/FACES): 8 - Related Data Allergies Allergy/AdvReac Type Severity Reaction Status Date / Time ibuprofen [From Motrin] Allergy Severe Anaphylactic Verified 01/17/19 12:40 Shock codeine Allergy Mild Itching Verified 01/17/19 12:40 morphine Allergy Mild Itching Verified 01/17/19 12:40 Sulfa (Sulfonamide Allergy Mild Hives Verified 01/17/19 12:40 Antibiotics) Fish Containing Products Allergy Swelling Verified 01/17/19 12:40 hydrocodone Allergy Itching Verified 01/17/19 12:40 tramadol Allergy itching/swe Verified 01/17/19 12:40 lling molds Allergy Hives Uncoded 06/01/18 16:19 Home Meds: Home Meds SUMAtriptan succinate [Sumatriptan Succinate] 100 tab PO ASDIRECTED PRN [History] Esomeprazole [NexIUM] 40 mg PO DAILY 10/29/15 [History] PARoxetine HCl [Paxil] 30 mg PO DAILY 10/29/15 [History] Albuterol Sulfate [Ventolin Hfa] 18 gm IH Q6H PRN #1 hfa.aer.ad 01/23/17 [Rx] Past Medical History - Past Health History Medical/Surgical History: Denies Medical/Surgical History Other HEENT History: glases Cardiovascular History: Reports: Hypertension Other Cardiovascular History: htn at 160/114 at this time Respiratory History: Reports: Asthma Other Respiratory History: exercise induced asthma. uses once every few months and inhaler Gastrointestinal History: Reports: GERD, Irritable Bowel Syndrome Other Gastrointestinal History: worse with anxiety. 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 usually takes imitrex Psychiatric History: Reports: Anxiety, Depression, Panic Attack Other Psychiatric History: usually on paxil and protonix Endocrine/Metabolic History: Reports: Obesity/BMI 30+ - Infectious Disease History Infectious Disease History: Reports: Chicken Pox - Past Surgical History HEENT Surgical History: Reports: Tonsillectomy Other HEENT Surgeries/Procedures: cyst removed from esophagus Endocrine Surgical History: Reports: None Neurological Surgical History: Reports: None Social & Family History - Family History Family Medical History: Noncontributory Cardiac: Reports: Heart Failure Oncologic: Reports: Breast, Thyroid - Tobacco Use Smoking Status *Q: Current Every Day Smoker Years of Tobacco use: 10 Packs/Tins Daily: 0.5 - Caffeine Use Caffeine Use: Reports: Coffee - Recreational Drug Use Recreational Drug Use: No ED ROS GENERAL - Review of Systems Review Of Systems: See Below Constitutional: Reports: No Symptoms. Denies: Fever, Chills, Weakness HEENT: Reports: No Symptoms Respiratory: Reports: No Symptoms Cardiovascular: Reports: No Symptoms Endocrine: Reports: No Symptoms GI/Abdominal: Reports: Nausea. Denies: Diarrhea, Vomiting : Reports: No Symptoms Musculoskeletal: Reports: No Symptoms Skin: Reports: No Symptoms Neurological: Reports: Headache. Denies: Dizziness, Paresthesia, Syncope, Tingling Psychiatric: Reports: No Symptoms Hematologic/Lymphatic: Reports: No Symptoms Immunologic: Reports: No Symptoms - Physical Exam Exam: See Below Exam Limited By: No Limitations General Appearance: Alert, WD/WN, Mild Distress Eye Exam: Bilateral Eye: PERRL Head Exam: Atraumatic, Normocephalic Respiratory/Chest: No Respiratory Distress, Lungs Clear, Normal Breath Sounds, No Accessory Muscle Use, Chest Non-Tender Cardiovascular: Normal Peripheral Pulses, Regular Rate, Rhythm, No Edema, No Murmur GI/Abdominal: Normal Bowel Sounds, Soft, Non-Tender, No Distention Neuro Exam (Abbreviated): Alert, Oriented, Normal Cognition, No Motor/Sensory Deficits Psychiatric: Normal Affect, Normal Mood Skin Exam: Warm, Dry, Intact, Normal Color, No Rash Course - Vital Signs Last Recorded V/S: Last Vital Signs Temp 97.3 F 01/17/19 12:39 Pulse 66 01/17/19 12:39 Resp 15 01/17/19 12:39 BP 160/114 H 01/17/19 12:39 Pulse Ox 100 01/17/19 12:39 - Orders/Labs/Meds Orders: Active Orders 24 hr Category Date Time Status HYDROmorphone [Dilaudid] Med 01/17/19 13:50 Once 0.5 mg IVPUSH ONETIME ONE Sodium Chloride 0.9% [Normal Saline] 1,000 ml Med 01/17/19 13:00 Active IV ASDIRECTED Medication Orders Sodium Chloride (Normal Saline) 1,000 mls @ 999 mls/hr IV ASDIRECTED BIANCA Last Admin: 01/17/19 13:05 Dose: 999 mls/hr Meds: Medications Generic Name Dose Route Start Last Admin Trade Name Freq PRN Reason Stop Dose Admin Sodium Chloride 1,000 mls @ 999 mls/hr 01/17/19 13:00 01/17/19 13:05 Normal Saline IV 999 mls/hr ASDIRECTED BIANCA Administration Discontinued Medications Generic Name Dose Route Start Last Admin Trade Name Freq PRN Reason Stop Dose Admin Diphenhydramine HCl 25 mg 01/17/19 12:46 01/17/19 13:04 Benadryl IVPUSH 01/17/19 12:47 25 mg ONETIME ONE Administration Hydromorphone HCl 0.5 mg 01/17/19 12:46 01/17/19 13:05 Dilaudid IVPUSH 01/17/19 12:47 0.5 mg ONETIME ONE Administration Ondansetron HCl 4 mg 01/17/19 12:46 01/17/19 13:04 Zofran IVPUSH 01/17/19 12:47 4 mg ONETIME ONE Administration - Re-Assessments/Exams Free Text/Narrative Re-Assessment/Exam: 01/17/19 12:52 patient is a 34-year-old female who presents with complaints of a headache and nausea since last night. She does have a chronic long-standing history of recurrent migraines and does take Imitrex as needed. She does Imitrex last night and it did improve her symptoms, however she did wake up with his symptoms again this morning. She has been seen numerous times in the past for similar headaches and has found that Dilaudid, Zofran, and Benadryl work best for her. She is unable take Toradol due an ibuprofen allergy. I have ordered Dilaudid 0.5 mg IV, Benadryl 25 mg IV, and Zofran 4 mg IV as well as a 1 L bolus of normal saline. Free Text/Narrative Re-Assessment/Exam: 01/17/19 13:49 On reassessment patient does verbalize improvement in her migraine. She would like a repeat dose of Dilaudid as the headache has not fully resolved and then she states that she would be ready to go home. I will repeat a dose of Dilaudid 0.5 mg IV and then prepare the patient for discharge. I did advise her to go home and rest in a quiet dark room and to return if her symptoms should worsen. Departure - Departure Time of Disposition: 13:51 Disposition: Home, Self-Care 01 Condition: Fair Clinical Impression: Migraine - Discharge Information *PRESCRIPTION DRUG MONITORING PROGRAM REVIEWED*: No *COPY OF PRESCRIPTION DRUG MONITORING REPORT IN PATIENT MAL: No Instructions: Migraine Headache, [id number] Referrals: Deyanira Humphries NP [Primary Care Provider] - Forms: ED Department Discharge Additional Instructions: You were seen in the emergency Department today with complaints of a migraine headache that began last night. You received Benadryl, Zofran, 1 L of IV fluids and 2 doses of Dilaudid while in the emergency department. You did verbalize relief from her headache symptoms. At this time we recommend that she go home and rest in a dark quiet room. The medications that you received in the emergency department are sedating, therefore you should not drive for the next 12 hours. If you should experience any new or worsening symptoms, please do not hesitate to return to the emergency department. - My Orders Last 24 Hours: My Active Orders 01/17/19 13:00 Sodium Chloride 0.9% [Normal Saline] 1,000 ml IV ASDIRECTED 01/17/19 13:50 HYDROmorphone [Dilaudid] 0.5 mg IVPUSH ONETIME ONE - Assessment/Plan Last 24 Hours: My Active Orders 01/17/19 13:00 Sodium Chloride 0.9% [Normal Saline] 1,000 ml IV ASDIRECTED 01/17/19 13:50 HYDROmorphone [Dilaudid] 0.5 mg IVPUSH ONETIME ONE
[2019-01-17] MEDS ORDERED: Sodium Chloride 0.9% 1,000 ML IV SCH (13:00)
== END 2019-01-17 14:02 | disposition home or self-care (01) ==
LOC: JD.ED 12:33
DX: G43.909 Migraine, unspecified, not intractable, without status migrainosus (principal); F17.210 Nicotine dependence, cigarettes, uncomplicated; Z88.2 Allergy status to sulfonamides; Z88.6 Allergy status to analgesic agent; Z88.5 Allergy status to narcotic agent; Z91.013 Allergy to seafood; Z91.09 Other allergy status, other than to drugs and biological substances
CPT/HCPCS: 96361; 96374; 96375; 96376; 99284; J1170; J1200; J2405; J7040; 99283

== ENCOUNTER 2019-09-05 08:52 | Emergency (ER) | payer MEDICAID, OTHER ==
[2019-09-05] MEDS ORDERED: HYDROmorphone 1 MG/ML Syringe IVPUSH ONE (09:15)
[2019-09-05] MEDS ORDERED: Sodium Chloride 0.9% 1,000 ML IV ONE (09:15)
[2019-09-05] MEDS ORDERED: Sodium Chloride 0.9% 10 ML Syringe FLUSH PRN (09:15)
[2019-09-05] MEDS ORDERED: Ondansetron 4 MG/2 ML SDV IVPUSH ONE (09:16)
[2019-09-05] MEDS ORDERED: diphenhydrAMINE 50 MG/ML SDV IVPUSH ONE (09:16)
[2019-09-05 10:08] VITALS: BP 143/97; PULSE 63
--- NOTE | 2019-09-05 10:15 | EDM.PDOC ---
ED HPI GENERAL MEDICAL PROBLEM - General Chief Complaint: Headache Stated Complaint: MIGRAINE Time Seen by Provider: 09/05/19 08:59 Source of Information: Reports: Patient History Limitations: Reports: No Limitations - History of Present Illness INITIAL COMMENTS - FREE TEXT/NARRATIVE: The patient presents with a migraine. This started early this morning and she has nausea and vomiting with it. She did try her imitrex but she vomited it up. She has no numbness or weakness. She has no fever, chills, cough, congestion, runny nose, or abdominal pain. She has a history of migraines. Onset: Gradual Duration: Hour(s): Location: Reports: Head Quality: Reports: Sharp Severity: Severe Improves with: Reports: None Worsens with: Reports: None Associated Symptoms: Reports: Nausea/Vomiting. Denies: Chest Pain, Cough, Fever/Chills, Headaches, Shortness of Breath Headache Pain Score (Numeric/FACES): 9 - Related Data Allergies Allergy/AdvReac Type Severity Reaction Status Date / Time codeine Allergy Severe Itching Verified 09/05/19 09:06 Fish Containing Products Allergy Severe Swelling Verified 09/05/19 09:06 hydrocodone Allergy Severe Itching Verified 09/05/19 09:06 ibuprofen [From Motrin] Allergy Severe Anaphylactic Verified 09/05/19 09:05 Shock morphine Allergy Severe Itching Verified 09/05/19 09:06 Sulfa (Sulfonamide Allergy Severe Hives Verified 09/05/19 09:06 Antibiotics) tramadol Allergy Severe itching/swe Verified 09/05/19 09:06 lling molds Allergy Severe Hives Uncoded 09/05/19 09:06 Home Meds: Home Meds SUMAtriptan succinate [Sumatriptan Succinate] 100 tab PO ASDIRECTED PRN 05/29/14 [History] Esomeprazole [NexIUM] 40 mg PO DAILY 10/29/15 [History] PARoxetine HCl [Paxil] 30 mg PO DAILY 10/29/15 [History] Albuterol Sulfate [Ventolin Hfa] 18 gm IH Q6H PRN #1 hfa.aer.ad 01/23/17 [Rx] Past Medical History - Past Health History Medical/Surgical History: Denies Medical/Surgical History Other HEENT History: glases Cardiovascular History: Reports: Hypertension Other Cardiovascular History: htn at 160/114 at this time Respiratory History: Reports: Asthma Other Respiratory History: exercise induced asthma. uses once every few months and inhaler Gastrointestinal History: Reports: GERD, Irritable Bowel Syndrome Other Gastrointestinal History: worse with anxiety. 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 usually takes imitrex Psychiatric History: Reports: Anxiety, Depression, Panic Attack Other Psychiatric History: usually on paxil and protonix Endocrine/Metabolic History: Reports: Obesity/BMI 30+ - Infectious Disease History Infectious Disease History: Reports: Chicken Pox - Past Surgical History HEENT Surgical History: Reports: Tonsillectomy Other HEENT Surgeries/Procedures: cyst removed from esophagus Endocrine Surgical History: Reports: None Neurological Surgical History: Reports: None Social & Family History - Family History Family Medical History: Noncontributory Cardiac: Reports: Heart Failure Oncologic: Reports: Breast, Thyroid - Tobacco Use Smoking Status *Q: Current Every Day Smoker Years of Tobacco use: 7 Packs/Tins Daily: 1 - Caffeine Use Caffeine Use: Reports: Coffee - Recreational Drug Use Recreational Drug Use: No ED ROS GENERAL - Review of Systems Review Of Systems: See Below Constitutional: Reports: No Symptoms HEENT: Reports: No Symptoms Respiratory: Reports: No Symptoms Cardiovascular: Reports: No Symptoms Endocrine: Reports: No Symptoms GI/Abdominal: Reports: Nausea, Vomiting. Denies: Abdominal Pain : Reports: No Symptoms Musculoskeletal: Reports: No Symptoms - Physical Exam Exam: See Below Exam Limited By: No Limitations General Appearance: Alert, No Apparent Distress Ears: Normal External Exam Nose: Normal Inspection Head Exam: Atraumatic, Normocephalic Neck: Normal Inspection Respiratory/Chest: No Respiratory Distress, Lungs Clear, Normal Breath Sounds Cardiovascular: Regular Rate, Rhythm, No Edema, No Murmur GI/Abdominal: Soft, Non-Tender, No Organomegaly, No Mass Neuro Exam (Abbreviated): Alert, Oriented, No Motor/Sensory Deficits Course - Vital Signs Last Recorded V/S: Last Vital Signs Temp 97.3 F 09/05/19 09:03 Pulse 63 09/05/19 10:07 Resp 16 09/05/19 10:07 BP 143/97 H 09/05/19 10:07 Pulse Ox 97 09/05/19 10:07 - Orders/Labs/Meds Orders: Active Orders 24 hr Category Date Time Status Peripheral IV Care [RC] . DIRECTED Care 09/05/19 09:15 Active HYDROmorphone [Dilaudid] Med 09/05/19 10:29 Once 0.5 mg IVPUSH ONETIME ONE Sodium Chloride 0.9% [Saline Flush] Med 09/05/19 09:15 Active 10 ml FLUSH ASDIRECTED PRN Peripheral IV Insertion Adult [OM.PC] Routine Oth 09/05/19 09:15 Ordered Medication Orders Sodium Chloride (Saline Flush) 10 ml FLUSH ASDIRECTED PRN PRN Reason: Keep Vein Open Last Admin: 09/05/19 09:23 Dose: 10 ml Documented by: ELADIO Meds: Medications Generic Name Dose Route Start Last Admin Trade Name Freq PRN Reason Stop Dose Admin Sodium Chloride 10 ml 09/05/19 09:15 09/05/19 09:23 Saline Flush FLUSH 10 ml ASDIRECTED PRN Administration Keep Vein Open Discontinued Medications Generic Name Dose Route Start Last Admin Trade Name Freq PRN Reason Stop Dose Admin Diphenhydramine HCl 50 mg 09/05/19 09:16 09/05/19 09:23 Benadryl IVPUSH 09/05/19 09:17 50 mg ONETIME ONE Administration Hydromorphone HCl 1 mg 09/05/19 09:15 09/05/19 09:24 Dilaudid IVPUSH 09/05/19 09:16 1 mg ONETIME ONE Administration Sodium Chloride 1,000 mls @ 1,000 mls/hr 09/05/19 09:15 09/05/19 09:24 Normal Saline IV 09/05/19 10:14 1,000 mls/hr ONETIME ONE Administration Ondansetron HCl 4 mg 09/05/19 09:16 09/05/19 09:23 Zofran IVPUSH 09/05/19 09:17 4 mg ONETIME ONE Administration - Re-Assessments/Exams Free Text/Narrative Re-Assessment/Exam: 09/05/19 10:14 I ordered an IV NS 1L bolus, zofran 4mg IV, dilaudid 1mg IV, and benadryl 50mg IV. 09/05/19 10:29 She feels better but would like another dose. I ordered diluadid 0.5mg IV and I will discharge her home. Departure - Departure Time of Disposition: 10:30 Disposition: Home, Self-Care 01 Condition: Good Clinical Impression: Migraine - Discharge Information *PRESCRIPTION DRUG MONITORING PROGRAM REVIEWED*: Not Applicable *COPY OF PRESCRIPTION DRUG MONITORING REPORT IN PATIENT MAL: Not Applicable Referrals: Kareem Correia MD [Primary Care Provider] - Forms: ED Department Discharge Additional Instructions: Go home and rest. Drink plenty of fluids. Please return if you are worse. Sepsis Event Note (ED) - Evaluation Sepsis Screening Result: No Definite Risk - Focused Exam Vital Signs: Vital Signs Temp Pulse Resp BP Pulse Ox 09/05/19 10:07 63 16 143/97 H 97 09/05/19 09:03 97.3 F 74 16 173/113 H 98 - My Orders Last 24 Hours: My Active Orders 09/05/19 09:15 Peripheral IV Care [RC] . DIRECTED Sodium Chloride 0.9% [Saline Flush] 10 ml FLUSH ASDIRECTED PRN Peripheral IV Insertion Adult [OM.PC] Routine 09/05/19 10:29 HYDROmorphone [Dilaudid] 0.5 mg IVPUSH ONETIME ONE - Assessment/Plan Last 24 Hours: My Active Orders 09/05/19 09:15 Peripheral IV Care [RC] . DIRECTED Sodium Chloride 0.9% [Saline Flush] 10 ml FLUSH ASDIRECTED PRN Peripheral IV Insertion Adult [OM.PC] Routine 09/05/19 10:29 HYDROmorphone [Dilaudid] 0.5 mg IVPUSH ONETIME ONE
[2019-09-05] MEDS ORDERED: HYDROmorphone 0.5 MG/0.5 ML Syringe IVPUSH ONE (10:29)
== END 2019-09-05 10:45 | disposition home or self-care (01) ==
LOC: JD.ED 08:52
DX: G43.909 Migraine, unspecified, not intractable, without status migrainosus (principal); R11.2 Nausea with vomiting, unspecified; I10 Essential (primary) hypertension; J45.909 Unspecified asthma, uncomplicated; K21.9 Gastro-esophageal reflux disease without esophagitis; F41.9 Anxiety disorder, unspecified; F32.9 Major depressive disorder, single episode, unspecified; E66.9 Obesity, unspecified; Z68.32 Body mass index [BMI] 32.0-32.9, adult; F17.210 Nicotine dependence, cigarettes, uncomplicated; Z88.2 Allergy status to sulfonamides; Z88.5 Allergy status to narcotic agent; Z91.048 Other nonmedicinal substance allergy status; Z91.013 Allergy to seafood; Z88.6 Allergy status to analgesic agent; Z79.899 Other long term (current) drug therapy
CPT/HCPCS: 96361; 96374; 96375; 96376; 99284; J1170; J1200; J2405; J7030; 99283

== ENCOUNTER 2020-05-08 21:37 | Emergency (ER) | payer MEDICAID ==
[2020-05-08 21:49] VITALS: BP 184/106; PULSE 90
[2020-05-08] MEDS ORDERED: Ondansetron 4 MG/2 ML SDV IVPUSH ONE (22:12)
[2020-05-08] MEDS ORDERED: HYDROmorphone 0.5 MG/0.5 ML Syringe IVPUSH ONE ×2 (22:12→23:47)
[2020-05-08] MEDS ORDERED: diphenhydrAMINE 50 MG/ML SDV IVPUSH ONE (22:12)
[2020-05-08] MEDS ORDERED: Lactated Ringers 1,000 ML IV ONE (22:12)
--- NOTE | 2020-05-08 22:41 | EDM.PDOC ---
ED HPI GENERAL MEDICAL PROBLEM - General Chief Complaint: Headache Stated Complaint: HEADACHE Time Seen by Provider: 05/08/20 21:45 - History of Present Illness INITIAL COMMENTS - FREE TEXT/NARRATIVE: 35-year-old female returns the emergency room with a typical migraine headache. Patient gets migraine headaches like this often. This 1 seems to be a little worse than the rest but otherwise is fairly typical. She has photophobia has had some nausea and vomiting. Headaches seem to start in the right side radiates to the left. Patient is unsure sure if she had an aura. Patient denies any fevers or chills or recent illnesses. She has not demonstrated any numbness or weakness with this headache. This headache is been going on for the better portion of this evening and started this afternoon. Home medications did not help. head Pain Score (Numeric/FACES): 10 - Related Data Allergies Allergy/AdvReac Type Severity Reaction Status Date / Time codeine Allergy Severe Itching Verified 05/08/20 21:49 Fish Containing Products Allergy Severe Swelling Verified 05/08/20 21:49 hydrocodone Allergy Severe Itching Verified 05/08/20 21:49 ibuprofen [From Motrin] Allergy Severe Anaphylactic Verified 05/08/20 21:49 Shock morphine Allergy Severe Itching Verified 05/08/20 21:49 Sulfa (Sulfonamide Allergy Severe Hives Verified 05/08/20 21:49 Antibiotics) tramadol Allergy Severe itching/swe Verified 05/08/20 21:49 lling molds Allergy Severe Hives Uncoded 05/08/20 21:49 Home Meds: Home Meds SUMAtriptan succinate [Sumatriptan Succinate] 100 tab PO ASDIRECTED PRN 05/29/14 [History] Esomeprazole [NexIUM] 40 mg PO DAILY 10/29/15 [History] PARoxetine HCl [Paxil] 30 mg PO DAILY 10/29/15 [History] Albuterol Sulfate [Ventolin Hfa] 18 gm IH Q6H PRN #1 hfa.aer.ad 01/23/17 [Rx] Past Medical History - Past Health History Medical/Surgical History: Denies Medical/Surgical History Other HEENT History: glases Cardiovascular History: Reports: Hypertension Other Cardiovascular History: htn at 160/114 at this time Respiratory History: Reports: Asthma Other Respiratory History: exercise induced asthma. uses once every few months and inhaler Gastrointestinal History: Reports: GERD, Irritable Bowel Syndrome Other Gastrointestinal History: worse with anxiety. 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 usually takes imitrex Psychiatric History: Reports: Anxiety, Depression, Panic Attack Other Psychiatric History: usually on paxil and protonix Endocrine/Metabolic History: Reports: Obesity/BMI 30+ - Infectious Disease History Infectious Disease History: Reports: Chicken Pox - Past Surgical History HEENT Surgical History: Reports: Tonsillectomy Other HEENT Surgeries/Procedures: cyst removed from esophagus GI Surgical History: Reports: Cholecystectomy Endocrine Surgical History: Reports: None Neurological Surgical History: Reports: None Social & Family History - Family History Family Medical History: No Pertinent Family History Cardiac: Reports: Heart Failure Oncologic: Reports: Breast, Thyroid - Tobacco Use Tobacco Use Status *Q: Current Every Day Tobacco User Years of Tobacco use: 4 Packs/Tins Daily: 0.2 - Caffeine Use Caffeine Use: Reports: Coffee - Recreational Drug Use Recreational Drug Use: No ED ROS GENERAL - Review of Systems Review Of Systems: See Below Constitutional: Reports: No Symptoms HEENT: Reports: No Symptoms Respiratory: Reports: No Symptoms Cardiovascular: Reports: No Symptoms GI/Abdominal: Reports: Nausea, Vomiting Musculoskeletal: Reports: No Symptoms Skin: Reports: No Symptoms Neurological: Reports: Headache ED EXAM, GENERAL - Physical Exam Exam: See Below Exam Limited By: No Limitations General Appearance: Alert, No Apparent Distress Eye Exam: Bilateral Eye: Normal Inspection, PERRL Ears: Normal External Exam, Normal Canal, Hearing Grossly Normal, Normal TMs Nose: Normal Inspection, Normal Mucosa, No Blood Throat/Mouth: Normal Inspection, Normal Lips, Normal Gums, Normal Oropharynx, Normal Voice, No Airway Compromise Head: Atraumatic, Normocephalic Neck: Normal Inspection, Supple, Non-Tender, Full Range of Motion. No: Lymphadenopathy (L), Lymphadenopathy (R) Respiratory/Chest: No Respiratory Distress, Normal Breath Sounds Cardiovascular: Regular Rate, Rhythm, No Edema, No Murmur GI/Abdominal: Normal Bowel Sounds, Soft, Non-Tender Back Exam: Normal Inspection. No: CVA Tenderness (L), CVA Tenderness (R) Neurological: Alert, Oriented, CN II-XII Intact, No Motor/Sensory Deficits Course - Vital Signs Last Recorded V/S: Last Vital Signs Temp 37.2 C 05/08/20 21:46 Pulse 90 05/08/20 21:46 Resp 20 05/08/20 21:46 BP 184/106 H 05/08/20 21:46 Pulse Ox 98 05/08/20 21:46 - Orders/Labs/Meds Meds: Medications Discontinued Medications Generic Name Dose Route Start Last Admin Trade Name Pallavi PRN Reason Stop Dose Admin Diphenhydramine HCl 25 mg 05/08/20 22:12 05/08/20 22:56 Diphenhydramine 50 Mg/Ml Sdv IVPUSH 05/08/20 22:13 25 mg ONETIME ONE Administration Diphenhydramine HCl Confirm 05/08/20 22:49 05/08/20 22:59 Diphenhydramine 50 Mg/Ml Sdv Administered 05/08/20 22:50 50 mg Dose Administration 50 mg .ROUTE .STK-MED ONE Hydromorphone HCl 0.5 mg 05/08/20 22:12 05/08/20 22:58 Hydromorphone 0.5 Mg/0.5 Ml Syringe IVPUSH 05/08/20 22:13 0.5 mg ONETIME ONE Administration Hydromorphone HCl 0.5 mg 05/08/20 23:47 05/08/20 23:56 Hydromorphone 0.5 Mg/0.5 Ml Syringe IVPUSH 05/08/20 23:48 0.5 mg ONETIME ONE Administration Lactated Ringer's 1,000 mls @ 999 mls/hr 05/08/20 22:12 05/08/20 22:56 Ringers, Lactated IV 05/08/20 23:12 999 mls/hr .BOLUS ONE Administration Ondansetron HCl 4 mg 05/08/20 22:12 05/08/20 22:57 Ondansetron 4 Mg/2 Ml Sdv IVPUSH 05/08/20 22:13 4 mg ONETIME ONE Administration Ondansetron HCl Confirm 05/08/20 22:49 05/08/20 22:57 Ondansetron 4 Mg/2 Ml Sdv Administered 05/08/20 22:50 4 mg Dose Administration 4 mg .ROUTE .STK-MED ONE - Re-Assessments/Exams Free Text/Narrative Re-Assessment/Exam: 05/08/20 22:40 We will give the patient a liter of LR 25 of Benadryl 4 mg of Zofran 0.5 mg of Dilaudid that seems to be what she always gets. 05/09/20 00:24 Patient doing much better now her initial IV infiltrated just with the medications a second IV was started the patient was redosed and is ready to go home Departure - Departure Time of Disposition: 00:25 Disposition: Home, Self-Care 01 Clinical Impression: Migraine - Discharge Information Forms: ED Department Discharge Additional Instructions: Return to the emergency room with any questions problems or worsening symptoms. Establish with a local healthcare provider and discuss getting put on medication to help you prevent getting headaches. The phone number to the hospital clinic is [phone]. Sepsis Event Note (ED) - Evaluation Sepsis Screening Result: No Definite Risk - Focused Exam Vital Signs: Vital Signs Temp Pulse Resp BP Pulse Ox 05/08/20 21:46 37.2 C 90 20 184/106 H 98
[2020-05-08] MEDS ORDERED: Ondansetron 4 MG/2 ML SDV ONE (22:49)
[2020-05-08] MEDS ORDERED: diphenhydrAMINE 50 MG/ML SDV ONE (22:49)
== END 2020-05-09 00:37 | disposition home or self-care (01) ==
LOC: JD.ED 21:37
DX: G43.909 Migraine, unspecified, not intractable, without status migrainosus (principal); I10 Essential (primary) hypertension; J45.909 Unspecified asthma, uncomplicated; K21.9 Gastro-esophageal reflux disease without esophagitis; E66.9 Obesity, unspecified; Z68.32 Body mass index [BMI] 32.0-32.9, adult; Z72.0 Tobacco use; Z88.5 Allergy status to narcotic agent; Z91.013 Allergy to seafood; Z88.6 Allergy status to analgesic agent; Z88.2 Allergy status to sulfonamides; Z91.048 Other nonmedicinal substance allergy status; Z79.899 Other long term (current) drug therapy
CPT/HCPCS: 96374; 96375; 96376; 99283; J1170; J1200; J2405; J7120

== ENCOUNTER 2020-10-09 23:08 | Emergency (ER) | payer MEDICAID ==
[2020-10-10] MEDS ORDERED: Benztropine 1 MG Tab PO STA (01:25)
[2020-10-10] MEDS ORDERED: Ondansetron 4 MG/2 ML SDV IVPUSH ONE (01:25)
[2020-10-10] MEDS ORDERED: Haloperidol Lactate 5 MG/ML SDV IM ONE (01:25)
[2020-10-10] MEDS ORDERED: Sodium Chloride 0.9% 1,000 ML IV ONE (01:25)
--- NOTE | 2020-10-10 01:31 | EDM.PDOC ---
ED HPI GENERAL MEDICAL PROBLEM - General Chief Complaint: General Stated Complaint: MIGRAINE Time Seen by Provider: 10/10/20 00:41 Source of Information: Reports: Patient, Family (Mother) History Limitations: Reports: No Limitations - History of Present Illness INITIAL COMMENTS - FREE TEXT/NARRATIVE: Ms. Borja is a very pleasant 35-year-old woman who now presents the ED sta ting that she developed a headache around 18:00 last night. She states that she feels a sharp/stabbing pain bifrontally, extending into the left side of her head. She has associated nausea and vomiting. She reports having photophobia, but no phonophobia, visual changes, or neurologic symptoms, such as tingling, numbness, or weakness. She states that her current headache is typical of when she gets a migraine, about every 3 to 5 months. Her last headache was on 05/08/2020 - she was seen in this ED at that time. The patient states that she took 100 mg of Imitrex at 19:00, without relief of her symptoms. She was going to take a second dose, but then vomited. The patient states that the last imaging study of her head was about 5 years ago. She states that she has never been evaluated by a neurologist or headache specialist. Here in the ED, the patient's initial BP is found to be elevated at 167/105, otherwise, she is hemodynamically stable, afebrile, saturating 98% on room air. She appears to be uncomfortable, but is in no acute distress. Prior to last night, the patient denies having a recent fever, chills, sore throat, ear pain, nasal or sinus congestion, cough, dyspnea, chest pain, palpitations, nausea, vomiting, constipation, diarrhea, abdominal pain, urinary symptoms, recent weight gain or weight loss, recent bloody bowel movements or black bowel movements, recent joint aches, headaches, or rashes. The patient's PCP is Deyanira Humphries NP. Her Professor Of History is Dr. Richard Palomino. She has not received a COVID vaccination. Headache Pain Score (Numeric/FACES): 9 - Related Data Allergies Allergy/AdvReac Type Severity Reaction Status Date / Time Fish Containing Products Allergy Severe Swelling Verified 10/09/20 23:45 ibuprofen [From Motrin] Allergy Severe Anaphylactic Verified 10/09/20 23:45 Shock tramadol Allergy Severe itching/swe Verified 10/09/20 23:45 lling Sulfa (Sulfonamide Allergy Intermediate Hives Verified 10/09/20 23:45 Antibiotics) codeine Allergy Mild Itching Verified 10/09/20 23:45 hydrocodone Allergy Mild Itching Verified 10/09/20 23:45 morphine Allergy Mild Itching Verified 10/09/20 23:45 mold Allergy Hives Verified 10/09/20 23:45 Home Meds: Home Meds SUMAtriptan succinate [Sumatriptan Succinate] 100 tab PO ASDIRECTED PRN 05/29/14 [History] Esomeprazole [NexIUM] 40 mg PO DAILY 10/29/15 [History] Past Medical History HEENT History: Reports: Impaired Vision (wears glasses) Cardiovascular History: Reports: Hypertension Respiratory History: Reports: Asthma (exercise-induced) Gastrointestinal History: Reports: GERD, Irritable Bowel Syndrome Psychiatric History: Reports: Anxiety, Depression, Panic Attack Endocrine/Metabolic History: Reports: Obesity/BMI 30+ - Infectious Disease History Infectious Disease History: Reports: Chicken Pox - Past Surgical History HEENT Surgical History: Reports: Tonsillectomy GI Surgical History: Reports: Cholecystectomy, EGD (esophageal cyst excision) Social & Family History - Tobacco Use Tobacco Use Status *Q: Current Every Day Tobacco User Years of Tobacco use: 20 Packs/Tins Daily: 0.5 Tobacco Use Comment: Started smoking 2000 - Caffeine Use Caffeine Use: Reports: Coffee - Alcohol Use Alcohol Use History: Yes Alcohol Use Frequency: Rarely - Recreational Drug Use Recreational Drug Use: No - Living Situation & Occupation Living situation: Reports: , with Family (3 kids) Occupation: Employed ([employer]) ED ROS GENERAL - Review of Systems Review Of Systems: Comprehensive ROS is negative, except as noted in HPI. ED EXAM, GENERAL - Physical Exam Exam: See Below Exam Limited By: No Limitations General Appearance: Alert, WD/WN, No Apparent Distress Eye Exam: Bilateral Eye: EOMI, Normal Inspection, PERRL Ears: Normal External Exam, Normal Canal, Hearing Grossly Normal, Normal TMs Nose: Normal Inspection, Normal Mucosa, No Blood Throat/Mouth: Normal Inspection, Normal Lips, Normal Teeth, Normal Gums, Normal Oropharynx, Normal Voice, No Airway Compromise Head: Atraumatic, Normocephalic Neck: Normal Inspection, Supple, Non-Tender, Full Range of Motion. No: Lymphadenopathy (L), Lymphadenopathy (R) Respiratory/Chest: No Respiratory Distress, Lungs Clear, Normal Breath Sounds, No Accessory Muscle Use Cardiovascular: Normal Peripheral Pulses, Regular Rate, Rhythm, No Edema, No Gallop, No JVD, No Murmur, No Rub Peripheral Pulses: 3+: Radial (L), Radial (R) GI/Abdominal: Normal Bowel Sounds, Soft, Non-Tender, No Organomegaly, No Distention, No Abnormal Bruit, No Mass Back Exam: Normal Inspection, Full Range of Motion, NT Extremities: Normal Inspection, Normal Range of Motion, No Pedal Edema, Normal Capillary Refill Neurological: Alert, Oriented, CN II-XII Intact, Normal Cognition, No Motor/Sensory Deficits Psychiatric: Normal Affect Skin Exam: Warm, Dry, Intact, Normal Color, No Rash Course - Vital Signs Last Recorded V/S: Last Vital Signs Temp 36.4 C 10/09/20 23:37 Pulse 89 10/09/20 23:37 Resp 16 10/09/20 23:37 BP 167/105 H 10/09/20 23:37 Pulse Ox 98 10/09/20 23:37 - Orders/Labs/Meds Meds: Medications Discontinued Medications Generic Name Dose Route Start Last Admin Trade Name Freq PRN Reason Stop Dose Admin Benztropine Mesylate 1 mg 10/10/20 01:25 10/10/20 02:27 Benztropine 1 Mg Tab PO 10/10/20 01:26 1 mg ONETIME STA Administration Diphenhydramine HCl 50 mg 10/10/20 02:33 10/10/20 03:11 Diphenhydramine 50 Mg/Ml Sdv IVPUSH 10/10/20 02:34 50 mg ONETIME ONE Administration Haloperidol Lactate 5 mg 10/10/20 01:25 10/10/20 02:27 Haloperidol Lactate 5 Mg/Ml Sdv IM 10/10/20 01:26 5 mg ONETIME ONE Administration Hydromorphone HCl 1 mg 10/10/20 02:23 10/10/20 02:29 Hydromorphone 1 Mg/Ml Syringe IVPUSH 10/10/20 02:24 1 mg ONETIME ONE Administration Sodium Chloride 1,000 mls @ 999 mls/hr 10/10/20 01:25 08/18/21 02:00 Normal Saline IV 10/10/20 02:25 999 mls/hr ONETIME ONE Administration Ondansetron HCl 4 mg 10/10/20 01:25 10/10/20 02:00 Ondansetron 4 Mg/2 Ml Sdv IVPUSH 10/10/20 01:26 4 mg ONETIME ONE Administration - Re-Assessments/Exams Free Text/Narrative Re-Assessment/Exam: 10/10/20 01:27 As above, the patient developed a headache, typical of her migraines, felt as a sharp/stabbing bifrontal pain extending into the left side of her head, along with nausea, vomiting, and photophobia around 18:00 last night. She took some Imitrex around 19:00, which did not help. Her neurologic examination is completely normal. I have ordered IM Haldol with oral Cogentin, a bolus of IV fluid, and IV Zofran. We discussed the option of getting a CT of her head, which, since it has been over 1 year, is recommended, however, because her neurologic examination is c ompletely normal, I recommended instead that she get an outpatient MRI, which would spare her the radiation. The patient agreed. 10/10/20 02:23 It has been about 30 minutes since the patient received Haldol. She reports that she has not had any significant improvement in her pain. This would indicate that her headache is not a migraine, but more likely tension-type headache. I have ordered some IV Dilaudid, since that has worked for her in the past. 10/10/20 03:20 Notified that the patient's headache is now resolved. Departure - Departure Time of Disposition: 04:02 Disposition: Home, Self-Care 01 Condition: Good Clinical Impression: Headache, Nausea & vomiting - Discharge Information *PRESCRIPTION DRUG MONITORING PROGRAM REVIEWED*: Not Applicable *COPY OF PRESCRIPTION DRUG MONITORING REPORT IN PATIENT MAL: Not Applicable Instructions: Migraine Headache, [id number], Nausea and Vomiting, Adult, [id number] Referrals: Deyanira Humphries NP [Primary Care Provider] - Richard Palomino MD [Physician] - Forms: ED Department Discharge Additional Instructions: You were seen in the emergency room after developing a headache, nausea, and vomiting last night. Your headache resolved after you were treated with several medications in the ER. We recommend that you stay adequately hydrated and get plenty of rest in a dark, quiet place. As discussed, current guidelines recommend that you undergo an imaging study of your head. Please follow-up with your PCP, Deyanira Humphries NP, to arrange for an outpatient MRI of your head. If any other problems, please do not hesitate to return to the ER. Sepsis Event Note (ED) - Evaluation Sepsis Screening Result: No Definite Risk - Focused Exam Vital Signs: Vital Signs Temp Pulse Resp BP Pulse Ox 10/09/20 23:37 36.4 C 89 16 167/105 H 98
[2020-10-10] MEDS ORDERED: HYDROmorphone 1 MG/ML Syringe IVPUSH ONE (02:23)
[2020-10-10] MEDS ORDERED: diphenhydrAMINE 50 MG/ML SDV IVPUSH ONE (02:33)
[2020-10-10 04:16] VITALS: BP 128/78; PULSE 69
== END 2020-10-10 04:15 | disposition home or self-care (01) ==
LOC: JD.ED 23:08
DX: R51.9 Headache, unspecified (principal); R11.2 Nausea with vomiting, unspecified; I10 Essential (primary) hypertension; J45.909 Unspecified asthma, uncomplicated; K21.9 Gastro-esophageal reflux disease without esophagitis; F17.210 Nicotine dependence, cigarettes, uncomplicated; E66.9 Obesity, unspecified; Z68.33 Body mass index [BMI] 33.0-33.9, adult; Z91.013 Allergy to seafood; Z88.6 Allergy status to analgesic agent; Z88.5 Allergy status to narcotic agent; Z88.2 Allergy status to sulfonamides; Z91.048 Other nonmedicinal substance allergy status; Z79.899 Other long term (current) drug therapy
CPT/HCPCS: 96372; 96374; 96375; 99284; A9270; J1170; J1200; J1630; J2405; J7030

== ENCOUNTER 2022-11-12 21:21 | Emergency (ER) | payer MEDICAID ==
[2022-11-12] MEDS ORDERED: Naloxone 0.4 MG/ML SDV IVPUSH PRN (21:45)
[2022-11-12] MEDS: Ondansetron 4 MG/2 ML SDV IVPUSH ONE (22:02)
[2022-11-12] MEDS: HYDROmorphone 0.5 MG/0.5 ML Syringe IVPUSH ONE (22:02)
[2022-11-12] MEDS: diphenhydrAMINE 50 MG/ML SDV IVPUSH ONE (22:02)
[2022-11-12] MEDS: Sodium Chloride 0.9% 1,000 ML IV ONE (22:03)
[2022-11-12 22:20] VITALS: PULSE 74
[2022-11-12 23:02] VITALS: BP 139/94
== END 2022-11-12 23:10 | disposition home or self-care (01) ==
LOC: JD.ED 21:21
DX: G43.909 Migraine, unspecified, not intractable, without status migrainosus (principal); I10 Essential (primary) hypertension; E66.9 Obesity, unspecified; F17.210 Nicotine dependence, cigarettes, uncomplicated; Z88.5 Allergy status to narcotic agent; Z91.013 Allergy to seafood; Z88.2 Allergy status to sulfonamides; Z91.09 Other allergy status, other than to drugs and biological substances; Z68.29 Body mass index [BMI] 29.0-29.9, adult
CPT/HCPCS: 96374; 96375; 99283; J1170; J1200; J2405; J7030

== ENCOUNTER 2023-06-03 16:10 | Emergency (ER) | payer MEDICAID ==
[2023-06-03 16:20] VITALS: BP 170/115; PULSE 75
[2023-06-03] MEDS: diphenhydrAMINE 50 MG/ML SDV IVPUSH ONE (17:34)
[2023-06-03] MEDS: Ondansetron 4 MG/2 ML SDV IVPUSH ONE (17:36)
[2023-06-03] MEDS: Sodium Chloride 0.9% 10 ML Syringe FLUSH PRN (17:38)
[2023-06-03] MEDS: HYDROmorphone 0.5 MG/0.5 ML Syringe IVPUSH ONE (17:38)
[2023-06-03] MEDS: Sodium Chloride 0.9% 1,000 ML IV STA (17:40)
[2023-06-03 17:42] LABS: BASOPHILS ABSOLUTE AUTO 0.1 K/mm3 (0.0-0.2); BASOPHILS PERCENT AUTO 0.8 % (0.0-1.0); EOSINOPHILS ABSOLUTE AUTO 0.1 K/mm3 (0.0-0.4); EOSINOPHILS PERCENT AUTO 1.5 % (0.0-6.0); HEMATOCRIT 39.2 % (37.0-47.0); HEMOGLOBIN 13.2 gm/dl (12.0-16.0); IMMATURE GRAN ABSOLUTE AUTO 0.03 K/mm3 (0.00-0.05); IMMATURE GRAN PERCENT AUTO 0.4 % (0.0-0.4); LYMPHOCYTES ABSOLUTE AUTO 2.6 K/mm3 (1.0-4.8); LYMPHOCYTES PERCENT AUTO 35.6 % (24.0-44.0); MEAN CORPUSCULAR HEMOGLOBIN 28.6 pg (28.0-32.0); MEAN CORPUSCULAR HGB CONC 33.7 g/dl (32.0-36.0); MEAN CORPUSCULAR VOLUME 84.8 fl (83.0-99.0); MEAN PLATELET VOLUME 9.2 fl (9.4-12.3); MONOCYTES ABSOLUTE AUTO 0.5 K/mm3 (0.0-0.8); MONOCYTES PERCENT AUTO 6.4 % (0.0-8.0); NEUTROPHILS PERCENT AUTO 55.3 % (41.0-71.0); PLATELET COUNT,PLT 285 K/mm3 (150-400); RED BLOOD CELL COUNT 4.62 M/mm3 (4.10-5.30)
[2023-06-03 18:04] LABS: A/G RATIO 1.1 (1-2); ALBUMIN 3.7 g/dl (3.4-5.0); ANION GAP 12.7 (5-15); BILIRUBIN TOTAL 0.3 mg/dL (0.2-1.0); CALCIUM 8.9 mg/dL (8.5-10.1); CREATININE 0.9 mg/dL (0.55-1.02); EST CRCL DRUG DOSING (CG) 78.56 mL/min; POTASSIUM,K 3.7 mEq/L (3.5-5.1)
[2023-06-03] MEDS: Acetaminophen 325 MG Tab PO ONE (18:29)
== END 2023-06-03 19:25 | disposition home or self-care (01) ==
LOC: JD.ED 16:10
DX: G43.909 Migraine, unspecified, not intractable, without status migrainosus (principal); K21.9 Gastro-esophageal reflux disease without esophagitis; Z91.013 Allergy to seafood; Z88.6 Allergy status to analgesic agent; Z88.5 Allergy status to narcotic agent; Z88.2 Allergy status to sulfonamides; Z91.048 Other nonmedicinal substance allergy status; Z79.899 Other long term (current) drug therapy; Z90.49 Acquired absence of other specified parts of digestive tract
CPT/HCPCS: 36415; 70450; 80053; 84703; 85025; 96374; 96375; 99284; A9270; J1170; J1200; J2405; J3490; J7030; 99283

== ENCOUNTER 2023-11-17 12:21 | Emergency (ER) | payer MEDICAID ==
[2023-11-17 13:11] LABS: BASOPHILS PERCENT AUTO 0.6 % (0.0-1.0); EOSINOPHILS ABSOLUTE AUTO 0.1 K/mm3 (0.0-0.4); EOSINOPHILS PERCENT AUTO 1.5 % (0.0-6.0); HEMATOCRIT 37.6 % (37.0-47.0); HEMOGLOBIN 13.2 gm/dl (12.0-16.0); IMMATURE GRAN ABSOLUTE AUTO 0.01 K/mm3 (0.00-0.05); IMMATURE GRAN PERCENT AUTO 0.2 % (0.0-0.4); LYMPHOCYTES ABSOLUTE AUTO 1.5 K/mm3 (1.0-4.8); LYMPHOCYTES PERCENT AUTO 29.6 % (24.0-44.0); MEAN CORPUSCULAR HEMOGLOBIN 29.5 pg (28.0-32.0); MEAN CORPUSCULAR HGB CONC 35.1 g/dl (32.0-36.0); MEAN CORPUSCULAR VOLUME 84.1 fl (83.0-99.0); MONOCYTES ABSOLUTE AUTO 0.4 K/mm3 (0.0-0.8); MONOCYTES PERCENT AUTO 7.4 % (0.0-8.0); NEUTROPHILS ABSOLUTE AUTO 3.1 K/mm3 (1.8-7.7); NEUTROPHILS PERCENT AUTO 60.7 % (41.0-71.0); PLATELET COUNT,PLT 278 K/mm3 (150-400); RED BLOOD CELL COUNT 4.47 M/mm3 (4.10-5.30); WHITE BLOOD CELL COUNT,WBC 5.17 K/mm3 (3.9-11.3)
[2023-11-17 13:28] LABS: INR 1.03; PROTHROMBIN TIME 10.9 SECONDS (9.7-12.0)
[2023-11-17 13:29] LABS: PTT,PARTIAL THROMBOPLSTIN TIME 26.8 SECONDS (21.7-31.4)
[2023-11-17 13:42] LABS: A/G RATIO 1.1 (1-2); ALANINE AMINOTRANSFERASE,ALT 23 U/L (14-59); ALBUMIN 3.5 g/dl (3.4-5.0); ALKALINE PHOSPHATASE 45 U/L (46-116); ANION GAP 13.5 (5-15); ASPARTATE AMNIOTRANSFERASE,AST 11 U/L (15-37); BILIRUBIN TOTAL 0.4 mg/dL (0.2-1.0); BLOOD UREA NITROGEN,BUN 6 mg/dL (7-18); BUN/CREATININE RATIO 7.5 (14-18); CALCIUM 8.9 mg/dL (8.5-10.1); CARBON DIOXIDE,CO2 22 mEq/L (21-32); CHLORIDE,CL 109 mEq/L (98-107); CREATININE 0.8 mg/dL (0.55-1.02); EST CRCL DRUG DOSING (CG) 88.38 mL/min; ESTIMATED GFR 96 mL/min (>60); GLUCOSE RANDOM 116 mg/dL (70-99); MAGNESIUM 1.7 mg/dL (1.8-2.4); POTASSIUM,K 3.5 mEq/L (3.5-5.1); PROTEIN TOTAL,TP 6.7 g/dl (6.4-8.2); SODIUM,NA 141 mEq/L (136-145)
[2023-11-17 13:47] LABS: TROPONIN I HIGH SENSITIVITY < 4 pg/mL (<=51)
[2023-11-17] MEDS: Citalopram 10 MG Tab PO STA (14:55)
[2023-11-17 15:13] VITALS: BP 117/80; PULSE 82
== END 2023-11-17 15:10 | disposition home or self-care (01) ==
LOC: JD.ED 12:21
DX: O99.891 Other specified diseases and conditions complicating pregnancy (principal); O99.341 Other mental disorders complicating pregnancy, first trimester; O99.351 Diseases of the nervous system complicating pregnancy, first trimester; O99.611 Diseases of the digestive system complicating pregnancy, first trimester; R07.89 Other chest pain; G47.00 Insomnia, unspecified; F41.9 Anxiety disorder, unspecified; K21.9 Gastro-esophageal reflux disease without esophagitis; Z3A.01 Less than 8 weeks gestation of pregnancy; Z86.16 Personal history of COVID-19; Z79.899 Other long term (current) drug therapy; Z88.2 Allergy status to sulfonamides; Z88.5 Allergy status to narcotic agent; Z88.8 Allergy status to other drugs, medicaments and biological substances; Z91.048 Other nonmedicinal substance allergy status; Z91.013 Allergy to seafood
CPT/HCPCS: 36415; 80053; 83735; 83880; 84484; 85025; 85610; 85730; 93005; 99285; A9270